=== PATIENT | female | born 1945 | race Caucasian/White ===

== ENCOUNTER 2016-11-05 14:07 | Outpatient (CLI) | payer MEDICARE, OTHER ==
--- NOTE | 2016-11-06 13:01 | XRAY Report ---
TWO-VIEW RIGHT KNEE: 11/05/2016 CLINICAL INDICATION: Arthritis. FINDINGS: Frontal and lateral views of the right knee demonstrate moderate osteoarthritis. There is no evidence of acute fracture or dislocation. No effusion is present. IMPRESSION: MODERATE RIGHT KNEE OSTEOARTHRITIS. JOB #: [id number] EXT JOB #:[id number]
--- NOTE | 2016-11-06 13:48 | DEXA Report ---
DEXA SCAN: 11/05/2016 CLINICAL INDICATION: Osteopenia. TECHNIQUE: Dual energy x-ray absorptiometry (DXA) was performed on a [employer] system. Regions measured are the AP spine, femoral neck, and, if needed, forearm. FINDINGS: The data for the lumbar spine is as follows: REGION BMD (g/cm/cm) T-SCORE Z-SCORE L1 0.984 -1.2 -0.3 L2 1.019 -1.5 -0.6 L3 1.025 -1.5 -0.6 L4 0.986 -1.8 -0.9 TOTAL 1.004 -1.5 -0.6 NOTE: All evaluable vertebrae are used for classification. The data for the hip is as follows: REGION BMD (g/cm/cm) T-SCORE Z-SCORE Neck 0.884 -1.1 0.1 TOTAL 0.965 -0.3 0.6 NOTE: The femoral neck or total proximal femur, whichever is lowest, is used for classification. IMPRESSION: THE WHO CLASSIFICATION BASED ON THE INTERNATIONAL REFERENCE STANDARD IS OSTEOPENIA. THE FRACTURE RISK IS INCREASED. RECOMMENDATION: Patients with diagnosis of osteoporosis or osteopenia should have regular bone mineral density assessment. For those eligible for Medicare, routine testing is allowed once every 2 years. Testing frequency can be increased for patients who have rapidly progressing disease or for those who are receiving medical therapy to restore bone mass. COMMENT: World Health Organization (WHO) definitions for osteoporosis and osteopenia: NORMAL BMD: T-score at -1.0 or higher, fracture risk is low. OSTEOPENIA BMD: T-score between -1.0 and -2.5, fracture risk is increased. OSTEOPOROSIS BMD: T-score at -2.5 or lower, fracture risk high. National Osteoporosis Foundation recommends: 1. Obtain adequate dietary calcium (at least 1200 mg per day) and vitamin D (400 -800 international units per day). 2. Participate, as appropriate, in regular weightbearing and muscle- strengthening exercise. 3. Avoid tobacco use and reduce alcohol and caffeine intake. 4. For more detailed information see the website at www.NOF.org. MTDD
== END 2016-11-05 14:08 | disposition home or self-care (01) ==
LOC: DI 14:07
PROVIDERS: ATTEND Family Medicine
DX: M17.11 Unilateral primary osteoarthritis, right knee (principal); M85.89 Other specified disorders of bone density and structure, multiple sites
CPT/HCPCS: 77080

== ENCOUNTER 2017-03-03 14:02 | Outpatient (CLI) | payer MEDICARE, OTHER ==
--- NOTE | 2017-03-05 16:26 | Mammography Report ---
DIGITAL SCREENING MAMMOGRAM: 03/03/2017 CLINICAL INDICATION: A 71-year-old, for screening. COMPARISON: 02/2016, 12/2014, 03/2014, 11/2013, 11/2012, 03/2011, 10/2009. TECHNIQUE: Routine CC and MLO projections were obtained of the breasts. FINDINGS: The breasts again demonstrate scattered fibroglandular densities bilaterally. Punctate, ty pically benign calcifications are present. No suspicious masses, clustered microcalcifications, or re gions of architectural distortion are identified. IMPRESSION: BENIGN FINDINGS. RECOMMENDATION: ROUTINE ANNUAL SCREENING UNLESS OTHERWISE CLINICALLY INDICATED. BIRADS CATEGORY 2-BENIGN FINDINGS. STANDARD QUALIFYING STATEMENTS 1. This examination was reviewed with the aid of Computer-Aided Detection (CAD). 2. A negative or benign imaging report should not delay biopsy if clinically suspicious findings are present. Consider surgical consultation if warranted. More than 5% of cancers are not identified by i maging. 3. Dense breasts may obscure an underlying neoplasm. JOB #: [id number] EXT JOB #:[id number]
== END 2017-03-03 14:03 | disposition home or self-care (01) ==
LOC: DI 14:02
PROVIDERS: ATTEND Family Medicine
DX: Z12.31 Encounter for screening mammogram for malignant neoplasm of breast (principal)
CPT/HCPCS: 77067

== ENCOUNTER 2017-07-20 16:29 | Outpatient (CLI) | payer MEDICARE, OTHER ==
[2017-07-20 16:53] LABS: BASOPHILS # (AUTO) 0.1 10^3/uL (0.0-0.1); BASOPHILS % (AUTO) 0.8 %; EOSINOPHILS # (AUTO) 0.1 10^3/uL (0.0-0.7); EOSINOPHILS % (AUTO) 1.2 %; HGB - HEMOGLOBIN 12.5 g/dL (12.0-16.0); LYMPHOCYTES # (AUTO) 1.5 10^3/uL (1.5-3.5); LYMPHOCYTES % (AUTO) 18.6 %; MEAN CORPUSCULAR HEMOGLOBIN 30.2 pg (27.0-31.0); MEAN CORPUSCULAR HGB CONC 33.8 g/dL (32.0-36.0); MEAN CORPUSCULAR VOLUME 89.4 fL (81.0-99.0); MEAN PLATELET VOLUME 8.5 fL (7.9-10.8); MONOCYTES # (AUTO) 0.7 10^3/uL (0.0-1.0); MONOCYTES % (AUTO) 8.3 %; NEUTROPHILS # (AUTO) 5.9 10^3/uL (1.5-6.6); NEUTROPHILS % (AUTO) 71.1 %; PLT - PLATELET COUNT 261 10^3/uL (130-450); RED BLOOD COUNT 4.14 10^6/uL (4.20-5.40); RED CELL DISTRIBUTION WIDTH 13.2 % (12.0-15.0); WHITE BLOOD COUNT 8.3 x10^3/uL (4.8-10.8)
[2017-07-20 17:10] LABS: ALBUMIN 3.9 g/dL (3.2-5.5); ALBUMIN/GLOBULIN RATIO 1.1 (1.0-2.2); BILIRUBIN,TOTAL 0.3 mg/dL (0.2-1.0); CALCIUM 8.8 mg/dL (8.5-10.3); CREATININE 0.9 mg/dL (0.4-1.0); CRP - C-REACTIVE PROTEIN 5.1 mg/dL (0-1.0); TOTAL PROTEIN 7.5 g/dL (6.7-8.2)
[2017-07-20] MEDS ORDERED: IOPAMIDOL-300 100 ML VIAL ONE (17:15)
[2017-07-20] MEDS ORDERED: IOPAMIDOL-300 100 ML VIAL IVP ONE ×2 (18:13→18:15)
--- NOTE | 2017-07-20 18:53 | CT Preliminary Report ---
Exam: CT FACIAL BONES W/WO IMPRESSION: 1. There are 3 rim enhancing hypodense lesion seen in the right parotid gland. 2 are in the superfici al lobe and one is in the deep lobe. Enlargement and abnormal increased density and enhancement is se en throughout the remainder of the right parotid gland. Mild adjacent subcutaneous fascial plane and parapharyngeal space edema is seen. Findings are suggestive of parotiditis with abscess formation. 2. Right level IIA and level IIB lymph nodes are slightly more prominent than the left. These may rep resent reactive inflammatory change. No lymph node abscess is seen. Critical result: Findings are discussed with the referring physician, Dr. Cesar Noble, on 8 at 1844 hrs. [facility] SITE ID: [id number]
--- NOTE | 2017-07-20 19:03 | CT Report ---
EXAM: CT MAXILLOFACIAL WITHOUT AND WITH CONTRAST EXAM DATE: 07/20/2017 05:44 PM. CLINICAL HISTORY: Parotid mass, right. Pain involving the right mouth extending toward the ear for on e week. COMPARISONS: None. TECHNIQUE: Thin-section axial images were acquired of the face prior to and following administration of intravenous contrast. Post-processing: Coronal and sagittal reformats. Other: None. IV contrast: 8 0 mL Isovue 300. In accordance with CT protocol optimization, one or more of the following dose reduction techniques w ere utilized for this exam: automated exposure control, adjustment of mA and/or KV based on patient s ize, or use of iterative reconstructive technique. FINDINGS: Orbits:Symmetric and unremarkable. Soft Tissue: Mild fascial plane edema is seen superficial and inferior to the right parotid gland. As ymmetric thickening of the superior aspect of the right platysma muscle is seen compared to the left. Extension along the deep margin of the parotid gland into the parapharyngeal space is seen as well. No soft tissue mass. The retropharyngeal and left parapharyngeal spaces are unremarkable. Bones: No fracture or bone lesion. Temporomandibular Joints: Mild degenerative change is seen in the TMJ, greater on the right. Sinuses: No acute sinusitis. Minimal mucosal thickening is seen inferiorly in the maxillary antra. Ot herwise the paranasal sinuses are clear. Moderate nasal septal deviation is seen convex to the left. The visualized mastoid air cells and middle ear cavities are clear. Glands: Abnormal enlargement with increased density and enhancement of the right parotid gland is see n. There are 3 focal areas of rim enhancement and central hypodensity suggesting abscess. Anteriorly a 6.5 mm focus is seen. Inferiorly in the superficial lobe a 12 x 7 mm focus is seen. Adjacent to thi s within the deep lobe a 15 x 7 mm focus is noted. These 2 communicate with a neck of 2.5 mm. The left parotid gland and bilateral submandibular glands are unremarkable. Other: Mild prominence to right-sided cervical lymph nodes is seen compared to the left. No focal hyp odensity is seen to suggest abscess. IMPRESSION: 1. There are 3 rim enhancing hypodense lesions seen in the right parotid gland. Two are in the superf icial lobe and one is in the deep lobe. Enlargement and abnormal increased density and enhancement is seen throughout the remainder of the right parotid gland. Mild adjacent subcutaneous fascial plane a nd parapharyngeal space edema is seen. Findings are suggestive of parotiditis with abscess formation. 2. Right level IIA and level IIB lymph nodes are slightly more prominent than the left. These may rep resent reactive inflammatory change. No lymph node abscess is seen. Critical result: Findings are discussed with the referring physician, Dr. Cesar Noble, on 8 at 1844 hrs. [facility] Referring Provider Line: [phone] SITE ID: [id number]
== END 2017-07-20 16:30 | disposition home or self-care (01) ==
LOC: DI 16:29
PROVIDERS: ATTEND Family Medicine
DX: K11.8 Other diseases of salivary glands (principal)
CPT/HCPCS: 36415; 70488; 80053; 85025; 86140; 86735; Q9967

== ENCOUNTER 2017-09-13 08:00 | Outpatient (CLI) | payer MEDICARE, OTHER ==
[2017-09-13 19:11] LABS: BASOPHILS % (AUTO) 0.6 %; EOSINOPHILS # (AUTO) 0.1 10^3/uL (0.0-0.7); EOSINOPHILS % (AUTO) 1.2 %; HGB - HEMOGLOBIN 13.6 g/dL (12.0-16.0); LYMPHOCYTES # (AUTO) 1.5 10^3/uL (1.5-3.5); MEAN CORPUSCULAR HEMOGLOBIN 29.5 pg (27.0-31.0); MEAN CORPUSCULAR HGB CONC 33.1 g/dL (32.0-36.0); MEAN CORPUSCULAR VOLUME 89.2 fL (81.0-99.0); MEAN PLATELET VOLUME 9.2 fL (7.9-10.8); MONOCYTES # (AUTO) 0.5 10^3/uL (0.0-1.0); MONOCYTES % (AUTO) 6.8 %; NEUTROPHILS # (AUTO) 5.6 10^3/uL (1.5-6.6); NEUTROPHILS % (AUTO) 72.4 %; PLT - PLATELET COUNT 295 10^3/uL (130-450); RED BLOOD COUNT 4.59 10^6/uL (4.20-5.40); RED CELL DISTRIBUTION WIDTH 13.8 % (12.0-15.0); WHITE BLOOD COUNT 7.8 x10^3/uL (4.8-10.8)
[2017-09-13 19:42] LABS: ALBUMIN/GLOBULIN RATIO 1.1 (1.0-2.2); ALKALINE PHOSPHATASE 90 IU/L (42-121); ALT ALANINE AMINOTRANSFERASE 18 IU/L (10-60); AST ASPARTATE AMINOTRANSFERASE 18 IU/L (10-42); BILIRUBIN,TOTAL 0.6 mg/dL (0.2-1.0); BUN - BLOOD UREA NITROGEN 13 mg/dL (6-20); CALCIUM 9.3 mg/dL (8.5-10.3); CARBON DIOXIDE - CO2 30 mmol/L (21-32); CHLORIDE 101 mmol/L (101-111); CREATININE 0.7 mg/dL (0.4-1.0); GFR - MDRD 82 (>89); GLUCOSE 92 mg/dL (70-100); SODIUM 139 mmol/L (135-145); TOTAL PROTEIN 7.5 g/dL (6.7-8.2)
[2017-09-13 19:57] LABS: CRP - C-REACTIVE PROTEIN < 1.0 mg/dL (0-1.0)
== END 2017-09-13 08:01 ==
LOC: LAB.WCP 08:00
PROVIDERS: ATTEND Family Medicine
DX: K11.20 Sialoadenitis, unspecified (principal); F41.9 Anxiety disorder, unspecified
CPT/HCPCS: 36415; 80053; 81599; 84443; 85025; 85651; 86140; 86235

== ENCOUNTER 2017-12-02 08:00 | Outpatient (CLI) | payer MEDICARE, OTHER ==
[2017-12-02 12:48] LABS: CREATININE 0.8 mg/dL (0.4-1.0)
== END 2017-12-02 08:01 | disposition home or self-care (01) ==
LOC: LAB.WCP 08:00
PROVIDERS: ATTEND Family Medicine
DX: E87.6 Hypokalemia (principal)
CPT/HCPCS: 36415; 80048

== ENCOUNTER 2017-12-04 12:57 | Outpatient (CLI) | payer MEDICARE, OTHER ==
--- NOTE | 2017-12-05 13:49 | CT Report ---
Procedure Date: 12/04/2017 Accession Number: [id number] / [id number] Procedure: CT - Sinuses CPT Code: FULL RESULT: EXAM: CT SINUS EXAM DATE: 12/04/2017 01:12 PM. HISTORY: Deviated septum, chronic maxillary sinusitis. COMPARISONS: 07/20/2017. TECHNIQUE: Routine multi-axial CT imaging performed through the sinuses. Iodinated IV contrast: None. Reconstructions: Coronal. In accordance with CT protocol optimization, one or more of the following dose reduction techniques were utilized for this exam: automated exposure control, adjustment of mA and/or KV based on patient size, or use of iterative reconstructive technique. FINDINGS: RIGHT Frontal: Normal. Ethmoid: Minimal mucosal thickening. Maxillary: There is a small amount of mucosal thickening inferiorly and probable 6 mm mucous retention cyst. No fluid. Sphenoid: Normal. Drainage Pathways: The frontal recess, ostiomeatal complex and sphenoethmoidal recess are patent and normal. LEFT Frontal: Mild mucosal thickening or small mucous retention cyst inferiorly. Ethmoid: Minimal mucosal thickening. Maxillary: Minimal mucosal thickening inferiorly. Sphenoid: Normal. Drainage Pathways: The frontal recess, ostiomeatal complex and sphenoethmoidal recess are patent and normal. Nasal Cavity: The nasal septum is significantly deviated to the left and has a leftward pointing septal spur that contacts the lateral wall of the nasal cavity/medial wall of the left maxillary sinus. Osseous Structures: Unremarkable. Orbits: Unremarkable. Other: None. IMPRESSION: Leftward deviation of the nasal septum with a leftward pointing septal spur that contacts the lateral wall of the nasal cavity. Minimal mucosal thickening in the paranasal sinuses. [facility]
== END 2017-12-04 12:58 | disposition home or self-care (01) ==
LOC: DI 12:57
PROVIDERS: ATTEND Family Medicine
DX: J34.2 Deviated nasal septum (principal); J34.89 Other specified disorders of nose and nasal sinuses; J32.0 Chronic maxillary sinusitis
CPT/HCPCS: 70486

== ENCOUNTER 2018-06-10 10:44 | Outpatient (CLI) | payer MEDICARE, OTHER ==
[2018-06-10 11:47] LABS: CREATININE 0.9 mg/dL (0.4-1.0)
[2018-06-10] MEDS ORDERED: IOVERSOL 320 100 ML VIAL IVP ONE ×2 (12:11→17:00)
--- NOTE | 2018-06-13 06:42 | CT Report ---
Reason: PAROTIDITIS Procedure Date: 06/10/2018 Accession Number: [id number] / [id number] Procedure: CT - Neck Soft Tissue W/ CPT Code: FULL RESULT: EXAM: CT SOFT TISSUE NECK WITH CONTRAST. EXAM DATE: 06/10/2018 12:22 PM. HISTORY: 72-year-old woman with parotiditis COMPARISONS: None. TECHNIQUE: Routine soft tissue neck CT protocol. Reconstructions: Coronal and sagittal. IV contrast: OPTI 320 80mL. In accordance with CT protocol optimization, one or more of the following dose reduction techniques were utilized for this exam: automated exposure control, adjustment of mA and/or KV based on patient size, or use of iterative reconstructive technique. FINDINGS: Visualized Intracranial Contents: Unremarkable. Sinuses: Visualized paranasal sinuses and mastoid air cells are clear. Pharynx and Oral Cavity: Parapharyngeal and retropharyngeal spaces are symmetric without mass lesion. Base of tongue and floor of mouth are symmetric without mass lesion. Pharyngeal airway is widely patent. Larynx: Symmetric without mass lesion. True vocal cords are symmetric. Airway is widely patent. Parotid and Submandibular Glands: Parotid and submandibular glands are symmetric and normal in appearance. No evidence of inflammatory reaction, underlying mass lesion, or sialolith. Lymph Nodes and Soft Tissues: No cervical or supraclavicular lymphadenopathy is present. Soft tissues are unremarkable. No mass lesion or abnormal enhancement. Thyroid: Normal. Lung Apices: Clear. Bones: No acute fracture or malalignment. Degenerative changes are present in the cervical spine. IMPRESSION: 1. Unremarkable CT of the neck soft tissues. In particular, parotid glands are symmetric and normal in appearance. [facility]
== END 2018-06-10 10:45 | disposition home or self-care (01) ==
LOC: LAB 10:44 → DI 10:45
PROVIDERS: ATTEND Family Medicine
DX: K11.20 Sialoadenitis, unspecified (principal)
CPT/HCPCS: 36415; 70491; 82565; Q9967

== ENCOUNTER 2018-06-23 16:20 | Outpatient (CLI) | payer MEDICARE, OTHER ==
--- NOTE | 2018-06-24 10:30 | Mammography Report ---
Reason: SCREENING MAMMO Procedure Date: 06/23/2018 Accession Number: [id number] / [id number] Procedure: [facility] - Screening Mammo w/Dav CPT Code: FULL RESULT: EXAM: Screening Mammo w/Dav DATE: 06/23/2018 4:57 PM CLINICAL HISTORY: Routine screening TECHNIQUE: Bilateral CC and MLO views were obtained. COMPARISON: 03/03/2017, 03/03/2016, 12/31/2014, 03/15/2014, and 11/24/2013 FINDINGS: There are scattered fibroglandular densities. Scattered nodularity and benign calcifications are similar to previous. No suspicious masses, new clustered microcalcifications, or regions of architectural distortion are identified. IMPRESSION: Benign findings RECOMMENDATION: Routine annual screening unless otherwise clinically indicated. BIRADS CATEGORY 2: Benign findings STANDARD QUALIFYING STATEMENTS: 1. This examination was not reviewed with the aid of Computer-Aided Detection (CAD). 2. A negative or benign imaging report should not delay biopsy if clinically suspicious findings are present. Consider surgical consultation if warrented. More than 5% of cancers are not identified by imaging. 3. Dense breasts may obscure an underlying neoplasm. 4. This examination was reviewed with the aid of 3D breast imaging (tomosynthesis).
== END 2018-06-23 16:21 | disposition home or self-care (01) ==
LOC: DI 16:20
DX: Z12.31 Encounter for screening mammogram for malignant neoplasm of breast (principal)
CPT/HCPCS: 77063; 77067

== ENCOUNTER 2019-02-14 08:00 | Outpatient (CLI) | payer MEDICARE, OTHER ==
[2019-02-14 18:41] LABS: BASOPHILS % (AUTO) 0.4 %; EOSINOPHILS # (AUTO) 0.1 10^3/uL (0.0-0.7); EOSINOPHILS % (AUTO) 1.9 %; HGB - HEMOGLOBIN 12.9 g/dL (12.0-16.0); LYMPHOCYTES # (AUTO) 1.7 10^3/uL (1.5-3.5); MEAN CORPUSCULAR HEMOGLOBIN 30.6 pg (27.0-31.0); MEAN CORPUSCULAR HGB CONC 32.7 g/dL (32.0-36.0); MEAN CORPUSCULAR VOLUME 93.6 fL (81.0-99.0); MEAN PLATELET VOLUME 11.3 fL (7.9-10.8); MONOCYTES # (AUTO) 0.6 10^3/uL (0.0-1.0); MONOCYTES % (AUTO) 9.2 %; NEUTROPHILS # (AUTO) 4.5 10^3/uL (1.5-6.6); NEUTROPHILS % (AUTO) 64.2 %; PLT - PLATELET COUNT 256 10^3/uL (130-450); RED BLOOD COUNT 4.22 10^6/uL (4.20-5.40); RED CELL DISTRIBUTION WIDTH 13.6 % (12.0-15.0)
[2019-02-14 18:57] LABS: HB2 TOTAL 13.3 g/dL; HEMOGLOBIN A1C 0.55 g/dL; HEMOGLOBIN A1C % 5.9 % (4.6-6.2)
[2019-02-14 19:16] LABS: FERRITIN 40.3 ng/mL (11.0-306.8)
[2019-02-14 19:18] LABS: ALBUMIN 3.9 g/dL (3.2-5.5); ALBUMIN/GLOBULIN RATIO 1.2 (1.0-2.2); ALKALINE PHOSPHATASE 80 IU/L (42-121); ALT ALANINE AMINOTRANSFERASE 20 IU/L (10-60); AST ASPARTATE AMINOTRANSFERASE 18 IU/L (10-42); BILIRUBIN,TOTAL 0.5 mg/dL (0.2-1.0); BUN - BLOOD UREA NITROGEN 14 mg/dL (6-20); CARBON DIOXIDE - CO2 29 mmol/L (21-32); CHLORIDE 103 mmol/L (101-111); CHOL/HDL RATIO 3.8 (<4.4); CHOLESTEROL 195 mg/dL; CREATININE 0.8 mg/dL (0.4-1.0); GFR - MDRD 70 (>89); GLUCOSE 90 mg/dL (70-100); HDL CHOLESTEROL 52 mg/dL; LDL CHOLESTEROL,CALCULATED 116 mg/dL; LDL/HDL RATIO 2.2 (<4.4); SODIUM 140 mmol/L (135-145); TOTAL PROTEIN 7.2 g/dL (6.7-8.2); VLDL CHOLESTEROL 27 mg/dL
== END 2019-02-14 23:59 | disposition home or self-care (01) ==
LOC: LAB.WCP 08:00
PROVIDERS: ATTEND Family Medicine
DX: R73.01 Impaired fasting glucose (principal); I10 Essential (primary) hypertension; E53.8 Deficiency of other specified B group vitamins
CPT/HCPCS: 36415; 80053; 80061; 82607; 82728; 83036; 83721; 84443; 85025

== ENCOUNTER 2019-03-24 12:05 | Outpatient (CLI) | payer MEDICARE, OTHER ==
--- NOTE | 2019-03-24 14:23 | Mammography Report ---
Reason: MASTODYNIA Procedure Date: 03/24/2019 Accession Number: [id number] / [id number] Procedure: [facility] - Diagnostic Dig Bilat CPT Code: FULL RESULT: EXAM: Diagnostic Dig Bilat DATE: 03/24/2019 1:06 PM CLINICAL HISTORY: Diagnostic examination. Breast pain. TECHNIQUE: (B) - Bilateral CC and MLO views were obtained. Left ML images are obtained. COMPARISON: 06/23/2018 through 03/15/2014. PARENCHYMAL PATTERN: (A) - The breast(s) demonstrate(s) scattered fibroglandular densities. FINDINGS: No abnormal findings are seen in the region of the left breast marked as palpable. There are no suspicious masses, calcifications, or areas of distortion. IMPRESSION: Negative examination. BI-RADS category 1. RECOMMENDATION: (ANNUAL) - Recommend routine annual screening mammography. BI-RADS CATEGORY: (1) - Negative. STANDARD QUALIFYING STATEMENTS: 1. This examination was not reviewed with the aid of Computer-Aided Detection (CAD). 2. A negative or benign imaging report should not preclude biopsy if clinically suspicious findings are present. 3. Dense breasts may obscure an underlying neoplasm. 4. This examination was reviewed with the aid of 3D breast imaging (tomosynthesis).
== END 2019-03-24 12:06 | disposition home or self-care (01) ==
LOC: DI 12:05
PROVIDERS: ATTEND Family Medicine
DX: N64.4 Mastodynia (principal)
CPT/HCPCS: 77066

== ENCOUNTER 2019-06-01 13:45 | Outpatient (CLI) | payer MEDICARE, OTHER ==
--- NOTE | 2019-06-02 08:50 | DEXA Report ---
Reason: BONE DISORDER Procedure Date: 06/01/2019 Accession Number: [id number] / [id number] Procedure: DEX - Dexa Spine and/or Hip CPT Code: Final Report FULL RESULT: EXAM: Dexa Spine and/or Hip DATE: 06/01/2019 2:33 PM CLINICAL HISTORY: BONE DISORDER TECHNIQUE: Dual energy x-ray absorptiometry (DXA) was performed on a [employer] System. Regions measured are the AP Spine, femoral neck, and if needed forearm. COMPARISON: 11/05/2016. In accordance with the International Society for Clinical Densitometry (ISCD) guidelines, data from previous exams may be reanalyzed using current recommendations and techniques. This is done to allow a more accurate basis for comparison with the current study. FINDINGS: The data for the lumbar spine is as follows: BMD (g/cm/cm) T-SCORE Z-SCORE REGION L1 0.926 -1.7 -0.9 L2 1.072 -1.1 -0.3 L3 1.038 -1.3 -0.6 L4 1.009 -1.6 -0.8 TOTAL 1.011 -1.4 -0.6 NOTE: All evaluable vertebrae are used for classification The data for the hip is as follows: BMD (g/cm/cm) T-SCORE Z-SCORE REGION Neck 0.885 -1.1 0.2 TOTAL 0.987 -0.2 0.8 NOTE: The femoral neck or total proximal femur, whichever is lowest, is used for classification. DXA RESULTS SUMMARY: Spine SCAN DATE [age]GE BMD CHANGE VS CHANGE VS PREVIOUS PREVIOUS % [birth year]01[birth year]2019 [age] 1[age]011 0.007 0.7 11/05/2016 [age] 1.004 * Denotes significant change at the 95% confidence level. Denotes dissimilar scan types or analysis methods. DXA RESULTS SUMMARY: Hip SCAN DATE [age]GE BMD CHANGE VS CHANGE VS PREVIOUS PREVIOUS % [birth year]2019 73.4 0.987 0.022 2.3 11/05[birth year]2016 70.8 0.965 * Denotes significant change at the 95% confidence level. Denotes dissimilar scan types or analysis methods. IMPRESSION: THE WHO CLASSIFICATION BASED ON THE INTERNATIONAL REFERENCE STANDARD IS OSTEOPENIA. THE FRACTURE RISK IS INCREASED. RECOMMENDATION: Patients with diagnosis of osteoporosis or osteopenia should have regular bone mineral density assessment. For those eligible for Medicare, routine testing is allowed once every 2 years. Testing frequency can be increased for patients who have rapidly progressing disease or for those who are receiving medical therapy to restore bone mass. COMMENT: World Health Organization (WHO) definitions for osteoporosis and osteopenia: NORMAL BMD: T-score at -1.0 or higher, fracture risk is low OSTEOPENIA BMD: T-score between -1.0 and -2.5, fracture risk is increased. OSTEOPOROSIS BMD: T-score at -2.5 or lower, fracture risk is high. National Osteoporosis Foundation recommends: 1. Obtain adequate dietary calcium (at least 1200 mg per day) and vitamin D (400-800 international units per day). 2. Participate, as appropriate, in regular weightbearing and muscle-strengthening exercise. 3. Avoid tobacco use and reduce alcohol and caffeine intake. 4. For more detailed information see the website at www.NOF.org.
== END 2019-06-01 13:46 | disposition home or self-care (01) ==
LOC: DI 13:45
PROVIDERS: ATTEND Family Medicine
DX: M85.89 Other specified disorders of bone density and structure, multiple sites (principal)
CPT/HCPCS: 77080

== ENCOUNTER 2021-01-15 16:21 | Outpatient (CLI) | payer MEDICARE, OTHER ==
[2021-01-15 20:49] LABS: BASOPHILS % (AUTO) 0.6 %; EOSINOPHILS # (AUTO) 0.1 10^3/uL (0.0-0.7); EOSINOPHILS % (AUTO) 1.6 %; HCT - HEMATOCRIT 41.2 % (37.0-47.0); HGB - HEMOGLOBIN 13.6 g/dL (12.0-16.0); LYMPHOCYTES # (AUTO) 2.3 10^3/uL (1.5-3.5); LYMPHOCYTES % (AUTO) 32.4 %; MEAN CORPUSCULAR HEMOGLOBIN 31.1 pg (27.0-31.0); MEAN CORPUSCULAR VOLUME 94.1 fL (81.0-99.0); MEAN PLATELET VOLUME 11.7 fL (7.9-10.8); MONOCYTES # (AUTO) 0.6 10^3/uL (0.0-1.0); MONOCYTES % (AUTO) 8.8 %; NEUTROPHILS # (AUTO) 3.9 10^3/uL (1.5-6.6); NEUTROPHILS % (AUTO) 56.2 %; PLT - PLATELET COUNT 263 10^3/uL (130-450); RED BLOOD COUNT 4.38 10^6/uL (4.20-5.40); RED CELL DISTRIBUTION WIDTH 13.7 % (12.0-15.0)
[2021-01-15 21:03] LABS: ALBUMIN 4.1 g/dL (3.2-5.5); ALBUMIN/GLOBULIN RATIO 1.2 (1.0-2.2); ALKALINE PHOSPHATASE 73 IU/L (42-121); ALT ALANINE AMINOTRANSFERASE 22 IU/L (10-60); AST ASPARTATE AMINOTRANSFERASE 23 IU/L (10-42); BILIRUBIN,TOTAL 0.7 mg/dL (0.2-1.0); BUN - BLOOD UREA NITROGEN 17 mg/dL (6-20); CALCIUM 9.4 mg/dL (8.5-10.3); CARBON DIOXIDE - CO2 28 mmol/L (21-32); CHLORIDE 99 mmol/L (101-111); CHOLESTEROL 213 mg/dL; CREATININE 0.9 mg/dL (0.4-1.0); GFR - MDRD 61 (>89); GLUCOSE 103 mg/dL (70-100); HDL CHOLESTEROL 43 mg/dL; LDL CHOLESTEROL,CALCULATED 107 mg/dL; LDL/HDL RATIO 2.5 (<4.4); POTASSIUM 3.7 mmol/L (3.5-5.0); SODIUM 136 mmol/L (135-145); TOTAL PROTEIN 7.4 g/dL (6.7-8.2); TRIGLYCERIDES 315 mg/dL; VLDL CHOLESTEROL 63 mg/dL
[2021-01-15 21:11] LABS: ESTIMATED AVERAGE GLUCOSE 143 mg/dL (70-100); HEMOGLOBIN A1c% 6.6 % (4.27-6.07)
== END 2021-01-15 16:22 | disposition home or self-care (01) ==
LOC: LAB.N 16:21
PROVIDERS: ATTEND Family Medicine
DX: I10 Essential (primary) hypertension (principal); E78.5 Hyperlipidemia, unspecified; E53.8 Deficiency of other specified B group vitamins; R73.01 Impaired fasting glucose
CPT/HCPCS: 36415; 80053; 80061; 82607; 83036; 83721; 85025

== ENCOUNTER 2021-05-19 15:23 | Outpatient (CLI) | payer MEDICARE, OTHER ==
--- NOTE | 2021-05-20 14:03 | Mammography Report ---
BILATERAL DIGITAL SCREENING MAMMOGRAM: 05/19/2021 CLINICAL: Routine screening. Comparison is made to exams dated: 03/24/2019 mammogram, 06/23/2018 mammogram, 03/03/2017 mammogram, mammogram, 12/31/2014 mammogram, and 03/15/2014 ultrasound - [facility]. Th e tissue of both breasts is predominantly fatty. There are benign calcifications in the right breast. No significant masses, calcifications, or other findings are seen in either breast. There has been no significant interval change. IMPRESSION: BENIGN There is no mammographic evidence of malignancy. A 1 year screening mammogram is recommended. This exam was interpreted at Station ID: [id number]. NOTE: For mammograms, a report in lay terms will be sent to the patient. Approximately 15% of breast malignancies will not be visualized mammographically. In the management of a palpable breast mass, a negative mammogram must not discourage biopsy of a clinically suspicious lesion. Electronically Signed By: Trever Kohler acr/penrad:05/19/2021 15:56:11 ACR BI-RADS Category 2: Benign Finding(s) 3342F PARENCHYMAL PATTERN: (F) - The breast(s) demonstrate(s) diffuse fatty replacement. BI-RADS CATEGORY: (2) - 2 RECOMMENDATION: (ANNUAL) - Recommend routine annual screening mammography. [id number] 1 year screening LATERALITY: (B)
== END 2021-05-19 15:24 | disposition home or self-care (01) ==
LOC: DI.N 15:23
DX: Z12.31 Encounter for screening mammogram for malignant neoplasm of breast (principal)

== ENCOUNTER 2021-07-04 12:39 | Outpatient (CLI) | payer MEDICARE, OTHER ==
[2021-07-04 18:55] LABS: CREATININE,URINE 140.4 mg/dL; MICROALBUMIN,URINE 13.9 mg/dL (0-300.0)
[2021-07-04 18:56] LABS: CALCIUM 9.5 mg/dL (8.5-10.3); CREATININE 0.9 mg/dL (0.4-1.0); POTASSIUM 3.5 mmol/L (3.5-5.0)
[2021-07-04 20:57] LABS: ESTIMATED AVERAGE GLUCOSE 148 mg/dL (70-100); HEMOGLOBIN A1c% 6.8 % (4.27-6.07)
== END 2021-07-04 12:40 | disposition home or self-care (01) ==
LOC: LAB.N 12:39
PROVIDERS: ATTEND Family Medicine
DX: R73.01 Impaired fasting glucose (principal)
CPT/HCPCS: 36415; 80048; 82043; 82570; 83036

== ENCOUNTER 2021-07-09 13:37 | Outpatient (CLI) | payer MEDICARE, OTHER ==
--- NOTE | 2021-07-09 16:16 | XRAY Report ---
PROCEDURE: Pelvis 1 View INDICATIONS: BILATERAL HIP PX TECHNIQUE: 1 view(s) of the pelvis acquired. COMPARISON: None. FINDINGS: Bones: Left worse than right bilateral hip joint osteoarthritic changes are seen. No hip fracture or dislocation. No evidence of avascular necrosis of femoral head. No suspicious bony lesions. Soft tissues: Visualized bowel gas pattern is normal. No suspicious soft tissue calcifications. 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 No fracture or dislocation . No evidence of avascular necrosis. Reviewed by: Phillip Mckinney MD on 07/09/2021 4:15 PM PST Approved by: Phillip Mckinney MD on 07/09/2021 4:15 PM PST Station ID: [id number]
--- NOTE | 2021-07-09 16:16 | XRAY Report ---
PROCEDURE: Chest 2 View X-Ray INDICATIONS: CHEST PX TECHNIQUE: 2 view(s) of the chest. COMPARISON: MR thoracic spine 06/06/2015. CXR 08/27/2014 FINDINGS: Surgical changes and devices: None. Lungs and pleura: No pleural effusions or pneumothorax. Mild streaky opacity in the medial right upp er lobe, slightly increased. This could be due to an accessory azygos fissure. Possible small pulmona ry nodule in the right midlung field which appears unchanged since 2015. Mediastinum: Mediastinal contours are normal. Heart size is normal. Bones and chest wall: No suspicious bony abnormalities. Kyphosis. Mild compression fracture at T5 is appreciated. Soft tissues appear unremarkable. IMPRESSION: No definite acute cardiopulmonary abnormality. Suspect atelectasis and/or accessory azygos fissure at the medial right upper lobe. Small pulmonary nodule suspected in the right mid lung field which appears unchanged compared to 2015 . Consider further evaluation with CT of the chest. Reviewed by: Nazario Carlisle MD on 07/09/2021 4:14 PM PST Approved by: Nazario Carlisle MD on 07/09/2021 4:14 PM PST Station ID: [id number]
== END 2021-07-09 13:38 | disposition home or self-care (01) ==
LOC: DI.N 13:37
PROVIDERS: ATTEND Family Medicine
DX: R07.9 Chest pain, unspecified (principal); R91.8 Other nonspecific abnormal finding of lung field; M16.0 Bilateral primary osteoarthritis of hip

== ENCOUNTER 2021-07-17 12:10 | Outpatient (CLI) | payer MEDICARE, OTHER ==
--- NOTE | 2021-07-17 14:16 | CT Report ---
PROCEDURE: CHEST WO INDICATIONS: LUNG NODULE TECHNIQUE: Noncontrast 1mm axial images were acquired from the pulmonary apices to the posterior costophrenic an gles. Axial 5 mm soft tissue kernel reconstructions were performed as well as 8 mm axial MIP and cor onal and sagittal 5 mm reformations. For radiation dose reduction, the following was used: automate d exposure control, adjustment of mA and/or kV according to patient size. COMPARISON: CXR 07/09/2021, 08/27/2014. FINDINGS: Image quality: Excellent. Lungs and pleura: There is a pulmonary nodule in the right middle lobe measuring 0.6 cm which is dionne cified. This is consistent with a calcified granuloma. There is minimal thickening along the right mi nor fissure measuring 0.3 cm. There is a punctate pulmonary nodule at the right apex measuring 0.2 cm . No acute air space opacities. No pleural effusions or pneumothorax. Central and peripheral airway s are patent and normal in caliber. Mediastinum: Heart size is normal. No pericardial effusion. No mediastinal adenopathy by size crit eria. Calcified right hilar lymph nodes. Thoracic aorta and central pulmonary arteries are normal in size. Esophagus is normal in caliber. Small hiatal hernia. Bones and chest wall: No suspicious bony lesions. Thoracic spine kyphosis. No vertebral body babs violet fractures. No axillary or supraclavicular adenopathy by size criteria. The thyroid is normal i n size and there are no incidental findings. Abdomen: Visualized upper abdominal solid organs and bowel loops appear normal in the absence of con trast. Colonic diverticulosis. IMPRESSION: 1. Right pulmonary nodule is consistent with a granuloma. No suspicious pulmonary nodules. 2. Calcified right hilar lymph nodes. These findings are consistent with prior granulomatous process. 3. Thoracic spine kyphosis. 4. Small hiatal hernia. Reviewed by: Nazario Carlisle MD on 07/17/2021 2:14 PM PST Approved by: Nazario Carlisle MD on 07/17/2021 2:14 PM PST Station ID: [id number]
== END 2021-07-17 12:11 | disposition home or self-care (01) ==
LOC: DI 12:10
PROVIDERS: ATTEND Family Medicine
DX: R91.1 Solitary pulmonary nodule (principal); I89.8 Other specified noninfective disorders of lymphatic vessels and lymph nodes; K44.9 Diaphragmatic hernia without obstruction or gangrene; M40.204 Unspecified kyphosis, thoracic region

== ENCOUNTER 2021-08-21 11:36 | Outpatient (CLI) | payer MEDICARE, OTHER ==
--- NOTE | 2021-08-21 13:10 | CARDIAC PROCEDURE NOTE ---
Stress Test Report Service Date: 08/21/21 Service Time: 12:30 Ordering Provider: Cesar Noble DO Indication for Test: Assess chest discomfort. Significant Medical History: Ruchi is referred for a walking Lexiscan stress myocardial perfusion imaging study today in follow-up of a concern voiced at a provider visit a few weeks ago of having left sided back pain under her scapula that can radiate around anteriorly. She says that the pain has been there for a long time and is almost always present to a variable degree. She does identify worsening of the discomfort upon sleeping on her left side, but does not believe there is a clear increase in the discomfort with walking. 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 She does feel that her stamina has decreased somewhat. She reports taking hydrochlorothiazide intermittently for lower extremity edema and we discussed her approach to blood pressure monitoring (see below). I note that in 2016 she underwent a resting Lexiscan stress study following a syncopal episode, with description of an abnormal EKG with long QT. This test was interpreted as showing a small fixed defect in the lateral wall, possibly due to prior small infarct or apical thinning, but there was no evidence of inducible ischemia. Cardiac Risk Factors: Positive for hypertension, hyperlipidemia, diabetes and family history of heart disease (probably some coronary disease) in both sides of her family. She has never been a cigarette smoker herself, though has had secondhand smoke exposure. Type of Stress Test: Pharmacologic Stress Test with MPI Pharmacologic Agent: Lexiscan Procedure: -Pharmacologic Stress Test- After signing informed consent, the patient underwent rest SPECT imaging and then performed a walking Lexiscan pharmacologic stress test. After obtaining resting vital signs and EKG (resting), the patient walked for 2 minutes (without elevation) at 0.8 mph ("baseline") followed by injection of Lexiscan and high dose 99Tc-Myoview with an additional 2 minutes of walking ("peak" reassessment) followed by monitoring for an additional 4 minutes ("recovery"). The test was terminated due to completing the protocol. Resting HR: 81 Baseline HR: 102 Peak HR: 121 Normal HR response. Resting BP: 166/97 Baseline BP: 191/97 Peak BP: 194/101 Hypertensive at rest with physiologic BP response to combined walking and Lexiscan injection. Rhythm during testing: Sinus rhythm throughout. Symptoms: She described leg heaviness and increased work of breathing following Lexiscan injection but no change in her mild left posterior chest discomfort. EKG at rest showed normal sinus rhythm with mild first degree AV block, with an intraventricular QRS conduction delay pattern, with some features of left bundle branch block. EKG at peak stress showed no ischemia by EKG criteria. Nuclear imaging was performed at rest and with stress. The image interpretation will be reported separately. IJackson MD, was present throughout this walking Lexiscan stress study and supervised it in its entirety. Summary: 1) Abnormal resting EKG. 2) Adequate stress was likely achieved. 3) Hypertensive at rest with physiologic BP response to walking and the pharmacologic agent. 4) No ischemic changes by EKG criteria were seen at peak stress. 5) Analysis of gated nuclear images reveals normal left ventricular size, but with mild global hypokinesis, with estimated ejection fraction of 47%. Initial review of SPECT images reveals a subtle stressassociated anterior perfusion defect, with partial reversibility, persistent on prone imaging, consistent with a possible small area of infarct and kathleen-scar ischemia. Formal radiology report does not confirm a fixed component to this abnormality. See separate report for more detail. CONCLUSIONS: 1) Mildly abnormal walking Lexiscan stress myocardial perfusion imaging study, demonstrating mild global hypokinesis of the left ventricle and likely a small partially fixed/partially reversible anterior perfusion defect. 2) It is known that myocardial perfusion imaging may underestimate ejection fraction, though this patient had an echocardiogram in our hospital in 2016 showing low normal systolic function with EF 50-55%. It would be appropriate to repeat an echocardiogram to see if she has reached a level of functional decrease where goal-directed medical therapy for LV systolic dysfunction would be indicated. 3) The study suggests a possible small partially reversible anterior ischemic defect, but this seems unlikely to be the cause of her thoracic pain syndrome, for which compression fractures seem a more fitting explanation, given the history she describes. Invasive coronary evaluation would likely only be appropriate if patientprovider discussion identifies aggressive care as the highest priority. 4) Ruchi explained that she takes HCTZ periodically for lower extremity edema, though she carries a diagnosis of HTN. She monitors BP periodically with a wrist blood pressure cuff. I encouraged her to collect some data points both in the mornings upon arising and again in the late afternoons to bring with her, along with her cuff, to her follow-up visit scheduled at the end of next week with Dr. Noble, for further review.
[2021-08-21] MEDS ORDERED: REGADENOSON 0.4 MG/5 ML SYRINGE IVP ONE ×2 (13:28→14:42)
--- NOTE | 2021-08-21 16:50 | Nuclear Medicine Report ---
PROCEDURE: Rest and stress myocardial perfusion SPECT with gated imaging and ejection fraction INDICATIONS: CHEST PAIN RADIOPHARMACEUTICAL: 13.6 mCi Tc-99m Myoview IV at rest and 36.5 mCi Tc-99m Myoview IV at peak exerc ise. [id number] was performed. TECHNIQUE: Radiopharmaceutical was injected at peak stress test, and also at rest. SPECT images wer e obtained. SPECT myocardial perfusion images were displayed in short axis, horizontal long axis, an d vertical long axis views. Gated images were reviewed using Auto[employer] software. COMPARISON: None available. FINDINGS: Raw data: There is good myocardial labeling by radiotracer. No significant motion artifacts. Lung- to-heart ratio is 0.27 (normal is less than 0.46 for tetrafosmin tracer). There is no definitive ST changes of ischemia. Left ventricle function: Gated images demonstrate normal left ventricle wall thickening. There is an overall appearance of diffuse hypokinesia, most prominent in the septum. No transient ischemic dilat ion; TID is 0.92 (normal less than 1.30). The left ventricle resting end-diastolic volume is 102 mL. Left ventricle stress ejection fraction is 47%; normal values are above 45%. Myocardial perfusion: There is a subtle focus of anterior stress perfusion defect appearing improved on rest. It does not improve with prone imaging. IMPRESSION: Subtle focus of anterior stress perfusion defect appearing to prove on rest. While this could represe nt breast artifact, I'm very small underlying focus of ischemia cannot be definitively excluded. No EKG changes of ischemia. Ejection fraction 47%. End-diastolic volume is at the upper limits of normal. PQRS ATTESTATIONS: Measure 322 - Is this imaging test primarily performed on a low-risk surgery patient for preoperative evaluation within 30 days preceding their low-risk non-cardiac surgery? Low-risk surgery is defined as cardiac or myocardial infarction less than 1%, including (but not limited to) endoscopic pr ocedures, superficial procedures, cataract surgery, and excisional breast surgery: Answer: No Measure 323 - Is this imaging test performed primarily for the monitoring of an asymptomatic patient who had percutaneous coronary intervention on the visit date or within 2 years of the visit date? An swer: No Measure 324 - Is this imaging test performed primarily for the initial detection and risk assessment on an asymptomatic, low coronary heart disease patient? Low CHD risk definition = clinicians should consider the maximum number of available patient factors used to estimate risk based on [place] (A TP III criteria), typically age, gender, diabetes, smoking status, and use of blood pressure medicati on, and integrate age appropriate estimates for missing elements, such as LDL or standard blood press ure. Answer: No Reviewed by: Judy Casarez MD on 08/21/2021 4:49 PM PDT Approved by: Judy Casarez MD on 08/21/2021 4:49 PM PDT Station ID: [id number]
== END 2021-08-21 11:37 | disposition home or self-care (01) ==
LOC: DI 11:36
PROVIDERS: ATTEND Family Medicine
DX: R07.9 Chest pain, unspecified (principal); I10 Essential (primary) hypertension; Z82.49 Family history of ischemic heart disease and other diseases of the circulatory system; Z83.3 Family history of diabetes mellitus; R94.39 Abnormal result of other cardiovascular function study; R94.31 Abnormal electrocardiogram [ECG] [EKG]
CPT/HCPCS: 78452; 93017; A9500; J2785

== ENCOUNTER 2021-09-22 14:42 | Outpatient (CLI) | payer MEDICARE, OTHER ==
--- NOTE | 2021-09-23 08:13 | Ultrasound Report ---
PROCEDURE: Duplex Lwr Ext Arterial Bilat INDICATIONS: BILATERAL CLAUDICATION TECHNIQUE: Color and pulse Doppler interrogation was performed of both lower extremity arterial systems, with im age documentation. COMPARISON: None FINDINGS: Right lower extremity: Common femoral artery: 84 cm/sec, with triphasic flow. Deep femoral artery: 52 cm/sec, with triphasic flow. Proximal superficial femoral artery: 77 cm/sec, with triphasic flow. Mid superficial femoral artery: 85 cm/sec, with triphasic flow. Distal superficial femoral artery: 52 cm/sec, with triphasic flow. Popliteal artery: 44 cm/sec, with triphasic flow. Posterior tibial artery: 86 cm/sec, with triphasic flow. Anterior tibial artery/dorsalis pedis: 76 cm/sec, with triphasic flow. Bowers-scale imaging description: Widely patent vessels Left lower extremity: Common femoral artery: 59 cm/sec, with triphasic flow. Deep femoral artery: 41 cm/sec, with triphasic flow. Proximal superficial femoral artery: 76 cm/sec, with triphasic flow. Mid superficial femoral artery: 73 cm/sec, with triphasic flow. Distal superficial femoral artery: 56 cm/sec, with triphasic flow. Popliteal artery: 47 cm/sec, with triphasic flow. Posterior tibial artery: 99 cm/sec, with triphasic flow. Anterior tibial artery/dorsalis pedis: 68 cm/sec, with triphasic flow. Bowers-scale imaging description: Widely patent vessels IMPRESSION: Unremarkable bilateral lower extremity arterial ultrasound. Reviewed by: Orion Rivero MD on 09/23/2021 8:11 AM PDT Approved by: Orion Rivero MD on 09/23/2021 8:11 AM PDT Station ID: [id number]
== END 2021-09-22 14:43 | disposition home or self-care (01) ==
LOC: DI 14:42
PROVIDERS: ATTEND Family Medicine
DX: I73.9 Peripheral vascular disease, unspecified (principal)
CPT/HCPCS: 93925

== ENCOUNTER 2022-02-06 12:38 | Outpatient (CLI) | payer MEDICARE, OTHER ==
--- NOTE | 2022-02-06 18:51 | DEXA Report ---
PROCEDURE: Dexa Spine and/or Hip INDICATIONS: POST MENOPAUSAL TECHNIQUE: Dual energy x-ray absorptiometry (DXA) was performed on a [employer] System. Regions measur ed are the AP Spine, femoral neck, and if needed forearm. COMPARISON: None. FINDINGS: Lumbar Spine: Bone Mineral Density 1.025 g/cm/cm,T score -1.3, osteopenia Left Hip: Bone Mineral Density 0.974 g/cm/cm,T score -0.3, normal Left Femoral Neck: Bone Mineral Density 0.891 g/cm/cm, T score -1.1, osteopenia (T score greater or equal to -1.0: NORMAL) (T score from -1.1 to -2.4: OSTEOPENIA) (T score less than or equal to -2.5 to: OSTEOPOROSIS) Impression: Osteopenia, slightly worsened at the hip and slightly improved in the lumbar spine Patients with diagnosis of osteoporosis or osteopenia should have regular bone mineral density assess ment. For those eligible for Medicare, routine testing is allowed once every 2 years. Testing frequ ency can be increased for patients who have rapidly progressing disease or for those who are receivin g medical therapy to restore bone mass. Reviewed by: Gerardo Bee MD on 02/06/2022 5:49 PM DULCE Approved by: Gerardo Bee MD on 02/06/2022 5:49 PM DULCE Station ID: [id number]
== END 2022-02-06 12:39 | disposition home or self-care (01) ==
LOC: DI 12:38
PROVIDERS: ATTEND Physician Assistant
DX: M85.89 Other specified disorders of bone density and structure, multiple sites (principal); Z78.0 Asymptomatic menopausal state

== ENCOUNTER 2022-08-15 11:31 | Outpatient (CLI) | payer MEDICARE, OTHER ==
[2022-08-15 19:17] LABS: BASOPHILS % (AUTO) 0.6 %; EOSINOPHILS # (AUTO) 0.2 10^3/uL (0.0-0.7); EOSINOPHILS % (AUTO) 2.6 %; HCT - HEMATOCRIT 37.7 % (37.0-47.0); HGB - HEMOGLOBIN 12.2 g/dL (12.0-16.0); LYMPHOCYTES % (AUTO) 30.6 %; MEAN CORPUSCULAR HEMOGLOBIN 30.3 pg (27.0-31.0); MEAN CORPUSCULAR HGB CONC 32.4 g/dL (32.0-36.0); MEAN CORPUSCULAR VOLUME 93.8 fL (81.0-99.0); MEAN PLATELET VOLUME 11.8 fL (7.9-10.8); MONOCYTES # (AUTO) 0.5 10^3/uL (0.0-1.0); MONOCYTES % (AUTO) 8.3 %; NEUTROPHILS # (AUTO) 3.7 10^3/uL (1.5-6.6); NEUTROPHILS % (AUTO) 57.6 %; PLT - PLATELET COUNT 254 10^3/uL (130-450); RED BLOOD COUNT 4.02 10^6/uL (4.20-5.40); RED CELL DISTRIBUTION WIDTH 13.9 % (12.0-15.0); WHITE BLOOD COUNT 6.5 x10^3/uL (4.8-10.8)
[2022-08-15 19:45] LABS: ALBUMIN 3.8 g/dL (3.2-5.5); ALBUMIN/GLOBULIN RATIO 1.1 (1.0-2.2); ALKALINE PHOSPHATASE 98 IU/L (42-121); ALT ALANINE AMINOTRANSFERASE 20 IU/L (10-60); AST ASPARTATE AMINOTRANSFERASE 16 IU/L (10-42); BILIRUBIN,TOTAL 0.7 mg/dL (0.2-1.0); BUN - BLOOD UREA NITROGEN 23 mg/dL (6-20); CALCIUM 9.6 mg/dL (8.5-10.3); CARBON DIOXIDE - CO2 29 mmol/L (21-32); CHLORIDE 106 mmol/L (101-111); CHOL/HDL RATIO 2.9 (<4.4); CHOLESTEROL 131 mg/dL; CREATININE 1.1 mg/dL (0.4-1.0); GAMMA GLUTAMYL TRANSPEPTIDASE 15 IU/L (8-38); GFR - MDRD 48 (>89); GLUCOSE 143 mg/dL (70-100); HDL CHOLESTEROL 45 mg/dL; LDL CHOLESTEROL,CALCULATED 56 mg/dL; LDL/HDL RATIO 1.2 (<4.4); POTASSIUM 4.7 mmol/L (3.5-5.0); SODIUM 143 mmol/L (135-145); TOTAL PROTEIN 7.2 g/dL (6.7-8.2); TRIGLYCERIDES 149 mg/dL; VLDL CHOLESTEROL 30 mg/dL
[2022-08-15 19:46] LABS: MICROALBUM/CREATININE RATIO,UR 10.8 ug/mg (<30.0); MICROALBUMIN,URINE 1.5 mg/dL (0-300.0)
[2022-08-15 19:49] LABS: THYROID STIMULATING HORMONE 2.25 uIU/mL (0.34-5.60)
[2022-08-16 08:16] LABS: ESTIMATED AVERAGE GLUCOSE 169 mg/dL (70-100); HEMOGLOBIN A1c% 7.5 % (4.27-6.07)
== END 2022-08-15 11:32 | disposition home or self-care (01) ==
LOC: LAB.N 11:31
PROVIDERS: ATTEND Physician Assistant
DX: E11.9 Type 2 diabetes mellitus without complications (principal); R53.83 Other fatigue; R74.8 Abnormal levels of other serum enzymes
CPT/HCPCS: 36415; 80053; 80061; 82043; 82570; 82607; 82977; 83036; 83721; 84443; 85025

== ENCOUNTER 2022-09-15 13:43 | Outpatient (CLI) | payer MEDICARE, OTHER ==
--- NOTE | 2022-09-16 09:33 | Ultrasound Report ---
ULTRASOUND OF LEFT AXILLA: 09/15/2022 CLINICAL: Diffuse left axilla pain. Comparison is made to exams dated: 05/19/2021 mammogram, 03/24/2019 mammogram, 06/23/2018 mammogram, 03/03/2017 mammogram, 03/03/2016 mammogram, and 12/31/2014 mammogram - [facility]. Ultrasound of the left axilla was performed. Bowers scale images of the real-time examination were re viewed. No significant abnormalities were seen sonographically in the left axilla. Specifically, no finding to explain the patient's pain. IMPRESSION: NEGATIVE There is no sonographic explanation for pain and no evidence of malignancy. Clinical follow up for c hronic symptoms. Annual mammogram screening is recommended. Findings and recommendations were conveyed to the patient at time of exam. This exam was interpreted at Station ID: [id number]. Electronically Signed By: Cassie ferrara/:09/15/2022 16:17:42 letter sent: No_Letter Ultrasound BI-RADS: 1 Negative BI-RADS CATEGORY: (1) - 1 Mammogram [id number] return to screening LATERALITY: (B)
== END 2022-09-15 13:44 | disposition home or self-care (01) ==
LOC: DI 13:43
PROVIDERS: ATTEND Physician Assistant
DX: R07.89 Other chest pain (principal)

== ENCOUNTER 2022-09-21 14:50 | Outpatient (CLI) | payer MEDICARE, OTHER ==
--- NOTE | 2022-09-23 10:05 | Mammography Report ---
BILATERAL DIGITAL SCREENING MAMMOGRAM 3D/2D: 09/21/2022 CLINICAL: Routine screening. Comparison is made to exams dated: 09/15/2022 ultrasound, 05/19/2021 mammogram, 03/24/2019 mammogram, 06/23/2018 mammogram, and 03/03/2017 mammogram - [facility]. There are scattered areas of fibroglandular density in both breasts (category b / 25%-50% glandular t issue). There are benign calcifications in the right breast. No significant masses, calcifications, or other findings are seen in either breast. There has been no significant interval change. IMPRESSION: BENIGN There is no mammographic evidence of malignancy. A 1 year screening mammogram is recommended. Based on the Tyrer Cuzick model (a risk assessment model) the patients lifetime risk is 4.3% and her 10 year risk is 0.0%. According to the ACR, ACS, and NCCN guidelines, an annual breast MRI exam vijay g with mammogram is recommended if the patients lifetime risk is 20% or greater. This exam was interpreted at Station ID: Unknown. NOTE: For mammograms, a report in lay terms will be sent to the patient. Approximately 15% of breast malignancies will not be visualized mammographically. In the management of a palpable breast mass, a negative mammogram must not discourage biopsy of a clinically suspicious lesion. Electronically Signed By: Nazario Carlisle M.D. [facility]/:09/23/2022 09:49:26 Entry: - 09/23/2022 09:49:26 letter sent: No_Letter ACR BI-RADS Category 2: Benign Finding(s) 3342F PARENCHYMAL PATTERN: (A) - The breast(s) demonstrate(s) scattered fibroglandular densities. BI-RADS CATEGORY: (2) - 2 Mammogram [id number] 1 year screening LATERALITY: (B)
== END 2022-09-21 14:51 | disposition home or self-care (01) ==
LOC: DI.N 14:50
DX: Z12.31 Encounter for screening mammogram for malignant neoplasm of breast (principal)

== ENCOUNTER 2022-11-17 09:53 | Outpatient (CLI) | payer MEDICARE, OTHER ==
[2022-11-17 12:14] LABS: CALCIUM 9.3 mg/dL (8.5-10.3); CREATININE 1.1 mg/dL (0.4-1.0); POTASSIUM 4.5 mmol/L (3.5-5.0)
[2022-11-17 12:18] LABS: ESTIMATED AVERAGE GLUCOSE 154 mg/dL (70-100)
== END 2022-11-17 09:54 | disposition home or self-care (01) ==
LOC: LAB.N 09:53
PROVIDERS: ATTEND Physician Assistant
DX: E11.9 Type 2 diabetes mellitus without complications (principal)
CPT/HCPCS: 36415; 80048; 83036

== ENCOUNTER 2022-11-30 15:09 | Outpatient (CLI) | payer MEDICARE, OTHER ==
--- NOTE | 2022-11-30 18:50 | XRAY Report ---
PROCEDURE: Foot 3 View LT INDICATIONS: FOOT PAIN LEFT TECHNIQUE: 3 views of the foot were acquired. COMPARISON: None. FINDINGS: Bones: Possible age-indeterminate transverse fracture of the base of the third metatarsal best seen on the oblique view. On the frontal view, possible malalignment at the Lisfranc articulation versus p rojectional artifact or sequela of midfoot degenerative changes. Corticated bony fragment adjacent to the base of the fifth metatarsal may represent a remote fractur e fragment or ossicle. Moderate first MTP joint degenerative changes. Polyarticular degenerative muhammad ges present elsewhere within the foot. A plantar calcaneal spur is present. Soft tissues: No suspicious soft tissue calcifications . IMPRESSION: Possible age-indeterminate fracture of the base of the third metatarsal. Possible malalignment at the Lisfranc articulation versus projectional artifact or sequela of midfoot degenerative changes. CT could be obtained for further evaluation if clinically indicated. Correlation with any recent hist ory of trauma may also be helpful. Reviewed by: Norbert Sloan MD on 11/30/2022 6:49 PM PDT Approved by: Norbert Sloan MD on 11/30/2022 6:49 PM PDT Station ID: [id number]
== END 2022-11-30 15:10 | disposition home or self-care (01) ==
LOC: DI.N 15:09
PROVIDERS: ATTEND Physician Assistant
DX: M79.672 Pain in left foot (principal)

== ENCOUNTER 2022-12-11 11:49 | Outpatient (CLI) | payer MEDICARE, OTHER ==
--- NOTE | 2022-12-11 16:13 | XRAY Report ---
PROCEDURE: Shoulder 3 View LT INDICATIONS: SHOULDER LT PX TECHNIQUE: 3 views of the shoulder were acquired. COMPARISON: None. FINDINGS: Bones: No fractures or dislocations. No suspicious bony lesions. Visualized ribs appear intact. Soft tissues: No suspicious soft tissue calcifications. IMPRESSION: Unremarkable left shoulder radiographs Reviewed by: Gerardo Bee MD on 12/11/2022 3:12 PM AKDT Approved by: Gerardo Bee MD on 12/11/2022 3:12 PM AKDT Station ID: [id number]
== END 2022-12-11 11:50 | disposition home or self-care (01) ==
LOC: DI 11:49
PROVIDERS: ATTEND Family Medicine
DX: M25.512 Pain in left shoulder (principal)

== ENCOUNTER 2023-07-29 12:35 | Outpatient (CLI) | payer MEDICARE, OTHER ==
[2023-07-29 17:37] LABS: BASOPHILS # (AUTO) 0.1 10^3/uL (0.0-0.1); BASOPHILS % (AUTO) 0.6 %; EOSINOPHILS # (AUTO) 0.2 10^3/uL (0.0-0.7); EOSINOPHILS % (AUTO) 2.6 %; HCT - HEMATOCRIT 42.3 % (37.0-47.0); HGB - HEMOGLOBIN 13.9 g/dL (12.0-16.0); LYMPHOCYTES # (AUTO) 2.1 10^3/uL (1.5-3.5); MEAN CORPUSCULAR HGB CONC 32.9 g/dL (32.0-36.0); MEAN CORPUSCULAR VOLUME 91.2 fL (81.0-99.0); MEAN PLATELET VOLUME 11.9 fL (7.9-10.8); MONOCYTES # (AUTO) 0.6 10^3/uL (0.0-1.0); MONOCYTES % (AUTO) 7.1 %; NEUTROPHILS # (AUTO) 5.1 10^3/uL (1.5-6.6); NEUTROPHILS % (AUTO) 63.3 %; PLT - PLATELET COUNT 273 10^3/uL (130-450); RED BLOOD COUNT 4.64 10^6/uL (4.20-5.40); RED CELL DISTRIBUTION WIDTH 13.2 % (12.0-15.0); WHITE BLOOD COUNT 8.1 x10^3/uL (4.8-10.8)
[2023-07-29 17:51] LABS: ALBUMIN 4.2 g/dL (3.2-5.5); ALBUMIN/GLOBULIN RATIO 1.3 (1.0-2.2); ALKALINE PHOSPHATASE 102 IU/L (42-121); ALT ALANINE AMINOTRANSFERASE 20 IU/L (10-60); AST ASPARTATE AMINOTRANSFERASE 18 IU/L (10-42); BILIRUBIN,TOTAL 0.7 mg/dL (0.2-1.0); BUN - BLOOD UREA NITROGEN 13 mg/dL (6-20); CALCIUM 9.6 mg/dL (8.5-10.3); CARBON DIOXIDE - CO2 32 mmol/L (21-32); CHLORIDE 99 mmol/L (101-111); CHOL/HDL RATIO 4.1 (<4.4); CHOLESTEROL 196 mg/dL; GFR - MDRD 54 (>89); GLUCOSE 145 mg/dL (74-104); HDL CHOLESTEROL 48 mg/dL; LDL CHOLESTEROL,CALCULATED 99 mg/dL; LDL/HDL RATIO 2.1 (<4.4); POTASSIUM 3.3 mmol/L (3.5-4.5); SODIUM 138 mmol/L (135-145); TOTAL PROTEIN 7.5 g/dL (6.4-8.9); TRIGLYCERIDES 244 mg/dL (48-352); VLDL CHOLESTEROL 49 mg/dL
[2023-07-29 19:44] LABS: CHLAMYDIA TRACHOMATIS DNA NEGATIVE (NEGATIVE); NEISSERIA GONORRHOEAE DNA NEGATIVE (NEGATIVE); TRICHOMONAS VAGINALIS DNA NEGATIVE (NEGATIVE)
[2023-07-29 22:29] LABS: ESTIMATED AVERAGE GLUCOSE 177 mg/dL (70-100); HEMOGLOBIN A1c% 7.8 % (4.27-6.07)
[2023-07-30 02:08] LABS: HCV AB Non Reactive (Non Reactive)
[2023-07-30 03:11] LABS: HIV SCREEN 4TH GENERATION Non Reactive (Non Reactive)
[2023-07-30 05:13] LABS: RPR Non Reactive (Non Reactive)
[2023-07-30 08:11] LABS: HSV 2 IGG TYPE SPEC <0.91 index (0.00-0.90)
== END 2023-07-29 12:36 | disposition home or self-care (01) ==
LOC: LAB.N 12:35
PROVIDERS: ATTEND Physician Assistant
DX: E11.9 Type 2 diabetes mellitus without complications (principal); E78.5 Hyperlipidemia, unspecified; Z20.2 Contact with and (suspected) exposure to infections with a predominantly sexual mode of transmission; I10 Essential (primary) hypertension
CPT/HCPCS: 36415; 80053; 80061; 83036; 84443; 85025; 86592; 86695; 86696; 86803; 87491; 87591; 87661; G0475; 83721; 87389

== ENCOUNTER 2023-08-13 12:48 | Outpatient (CLI) | payer MEDICARE, OTHER ==
[2023-08-13] MEDS ORDERED: iohexoL-300 100 ML VIAL ONE (13:13)
[2023-08-13] MEDS: iohexoL-300 100 ML VIAL IVP ONE (14:06)
--- NOTE | 2023-08-13 15:51 | Ultrasound Report ---
PROCEDURE: Soft Tissue Head or Neck INDICATIONS: CHEST WALL PAIN, ADENOPATHY TECHNIQUE: Real-time scanning was performed of the thyroid gland, with image documentation. COMPARISON: None FINDINGS: There is no sonographic abnormality in the area palpated by the patient. Normal-appearing subcutaneous fat and underlying chest wall muscles are visualized. IMPRESSION: No sonographic abnormality in the area palpated by the patient. Reviewed by: Sofia Parker MD on 08/13/2023 3:50 PM PST Approved by: Sofia Parker MD on 08/13/2023 3:50 PM PST Station ID: [id number]
--- NOTE | 2023-08-13 16:39 | CT Report ---
PROCEDURE: Soft Tissue Neck W INDICATIONS: CHEST WALL PAIN, ADENOPATHY CONTRAST: 100ml omni 300 TECHNIQUE: After the administration of intravenous contrast, 3.0 mm axial sections acquired from the sella to th e aortic arch. Additional oblique axial 3.0 mm sections acquired through the pharynx. 3 mm thick co pat reformats were generated. For radiation dose reduction, the following was used: automated exp osure control, adjustment of mA and/or kV according to patient size. COMPARISON: 06/10/2018. Correlation is made with the accompanying imaging. FINDINGS: Image quality: Excellent. Lymph nodes: No enlarged lymph nodes seen throughout the neck. Borderline prominent lymph nodes are noted, however Vessels: Visualized vasculature appears patent. Neck spaces: The oropharynx, nasopharynx, and pharynx demonstrate no mucosal lesions. The vocal cor ds, false vocal cords, pyriform sinuses, epiglottis, vallecula, and tongue base all appear normal. E xtramucosal spaces appear unremarkable. Glands: The parotid and submandibular glands appear normal. The thyroid is normal in size and there are no incidental findings. Miscellaneous: Visualized brain and orbits appear normal. Lung apices appear clear. Superficial so ft tissues appear normal. Bones: No suspicious bony lesions. Visualized sinuses and mastoids appear unremarkable. Moderate c ervical spine degenerative change can be seen, which is worst inferiorly. IMPRESSION: No soft tissue masses are seen. Reviewed by: Sven Ngo MD on 08/13/2023 3:38 PM AKST Approved by: Sven Ngo MD on 08/13/2023 3:38 PM AK Station ID: [id number]
== END 2023-08-13 12:49 | disposition home or self-care (01) ==
LOC: DI 12:48
PROVIDERS: ATTEND Physician Assistant
DX: R59.0 Localized enlarged lymph nodes (principal); R07.89 Other chest pain
CPT/HCPCS: 70491; 76536; Q9967

== ENCOUNTER 2023-10-29 15:12 | Outpatient (CLI) | payer MEDICARE, OTHER ==
--- NOTE | 2023-10-29 20:17 | XRAY Report ---
PROCEDURE: Abdomen 2 V INDICATIONS: ABDOMINAL BLOATING TECHNIQUE: 2 views of the abdomen were acquired. COMPARISON: None. FINDINGS: Surgical changes and devices: None. Bowel: No pneumoperitoneum. The bowel gas pattern is normal. Moderate colonic stool. Soft tissues: Prominent liver shadow is seen extending below the iliac crest. No suspicious abdomina l calcifications. Bones: No suspicious bony abnormalities. IMPRESSION: 1.Nonobstructive bowel gas pattern. Moderate colonic stool. 2.Possible hepatomegaly. Reviewed by: Norbert Banks MD on 10/29/2023 8:16 PM PDT Approved by: Norbert Banks MD on 10/29/2023 8:16 PM PDT Station ID: [id number]
== END 2023-10-29 15:13 | disposition home or self-care (01) ==
LOC: DI 15:12
PROVIDERS: ATTEND Physician Assistant
DX: R14.0 Abdominal distension (gaseous) (principal)

== ENCOUNTER 2023-12-07 11:43 | Outpatient (CLI) | payer MEDICARE, OTHER ==
--- NOTE | 2023-12-07 17:36 | Ultrasound Report ---
PROCEDURE: Abdomen Limited INDICATIONS: HEPATOMEGALY TECHNIQUE: Real-time focused scanning was performed of the abdomen, with image documentation. COMPARISONS: None. FINDINGS: Liver: Liver is within normal limits for size measuring approximately 20.1 cm. Liver is homogeneous in echotexture. Gallbladder: There is a 3.1 cm mobile gallstone near the gallbladder fundus. No wall thickening. No s onographic Valdez sign. No pericholecystic fluid. Biliary ducts: Intrahepatic bile ducts are non-dilated. Extrahepatic bile duct caliber measures 8 m m. Normal is 6-7 mm or less in diameter, or 10 mm or less post-cholecystectomy. Pancreas: Visualized portions of the pancreas are sonographically normal. Right kidney: Normal in size and echotexture. Right kidney measures 10.5 cm long. No hydronephrosis or nephrolithiasis. No solid masses. No complex renal cystic lesions which require follow-up. IVC: Intrahepatic inferior vena cava is patent. Aorta: No aneurysmal dilatation. Miscellaneous: No free abdominal fluid. IMPRESSION: A 3.1 cm gallstone without sonographic evidence for acute cholecystitis. Unremarkable sonographic appearance of the liver. Reviewed by: Nicolas Garg MD on 12/07/2023 5:35 PM PDT Approved by: Nicolas Garg MD on 12/07/2023 5:35 PM PDT Station ID: [id number]
== END 2023-12-07 11:44 | disposition home or self-care (01) ==
LOC: DI 11:43
PROVIDERS: ATTEND Physician Assistant
DX: K80.20 Calculus of gallbladder without cholecystitis without obstruction (principal)

== ENCOUNTER 2024-01-27 14:15 | Outpatient (CLI) | payer MEDICARE, OTHER ==
[2024-01-27 18:04] LABS: CALCIUM 9.9 mg/dL (8.5-10.3); POTASSIUM 3.6 mmol/L (3.5-4.5)
[2024-01-27 21:12] LABS: ESTIMATED AVERAGE GLUCOSE 134 mg/dL (70-100); HEMOGLOBIN A1c% 6.3 % (4.27-6.07)
[2024-01-28 07:10] LABS: HSV 2 IGG TYPE SPEC <0.91 index (0.00-0.90)
== END 2024-01-27 14:16 | disposition home or self-care (01) ==
LOC: LAB.N 14:15
PROVIDERS: ATTEND Physician Assistant
DX: E11.9 Type 2 diabetes mellitus without complications (principal); B00.9 Herpesviral infection, unspecified
CPT/HCPCS: 36415; 80048; 83036; 86695; 86696